=== PATIENT | female | born 1950 | race Caucasian/White ===

== ENCOUNTER 2017-12-03 10:02 | Emergency (ER) | payer MEDICARE, BC ==
[~2017-12-03] VITALS: Ht 154.9 cm; Wt 96.6 kg
[2017-12-03 10:13] VITALS: BP 145/67; PULSE 71; RESP 16; TEMP 97.4; O2SAT 98
[2017-12-03 10:20] VITALS: BP 145/67; PULSE 71; RESP 16; TEMP 97.4; O2SAT 98
[2017-12-03] MEDS ORDERED: LEVO75TA3 PO (10:22)
[2017-12-03] MEDS ORDERED: DILT120C50 PO (10:23)
[2017-12-03] MEDS ORDERED: METO1TAB9 PO (10:23)
[2017-12-03] MEDS ORDERED: METF500T PO (10:23)
[2017-12-03] MEDS ORDERED: LIPI20TA PO (10:24)
[2017-12-03] MEDS ORDERED: LISI2.5T3 PO (10:24)
[2017-12-03] MEDS ORDERED: ORPHENADRINE INJ 60 MG/2 ML AMP IM ONE (10:30)
[2017-12-03] MEDS ORDERED: KETOROLAC TROMETHAMINE 60 MG/2 ML (IM) VIAL IM ONE (10:30)
--- NOTE | 2017-12-03 10:32 | PD ---
HPI Chief Complaint: Musculoskeletal Complaint Time Seen by Provider: 10:21 Travel History International Travel<30 days: No Contact w/Intl Traveler<30days: No Traveled to known affect area: No History of Present Illness HPI This is a 67-year-old female presents for evaluation of lower back pain. Symptoms started 3 days ago. She reports that symptoms started after she was stretching her body. Symptoms initially were mild but then yesterday she was lifting her blinds up and the pain became worse which prompted evaluation. She describes it as a soreness in her right lower back which is worse with certain movements, alleviated with rest. She has been taking some ibuprofen with some relief in her pain. She reports that it feels like a "pulled muscle." She denies abdominal pain, flank pain, nausea or vomiting, dysuria, hematuria. No history of kidney stone or back surgery. Denies lower extremity weakness, radicular symptoms, bowel or bladder incontinence, saddle anesthesia. Denies history of osteoporosis. No other complaints. PFSH Past Medical History Diminished Hearing: No Tetanus Vaccination: < 5 Years Influenza Vaccination: Yes Past Surgical History Cardiac Surgery: Yes (Bipass) Hysterectomy: Yes Tonsillectomy: Yes Other Surgery: Yes (Gallbladder) Social History Alcohol Use: No Tobacco Use: No Substance Use: No Allergies-Medications (Allergen,Severity, Reaction): Coded Allergies: No Known Allergies (Unverified , 12/03/17) Reported Meds & Prescriptions Reported Meds & Active Scripts Active Lidocaine Patch 12 HR (Lidocaine) 5 % Patch 1 Patch TOPICAL DAILY PRN Remove patch after 12 hours Baclofen 10 Mg Tab 10 Mg PO Q8HR 7 Days Reported Lisinopril 2.5 Mg Tab 2.5 Mg PO DAILY Lipitor (Atorvastatin Calcium) 20 Mg Tab 20 Mg PO HS Diltiazem CD 24 HR 120 Mg Caper 180 Mg PO DAILY Metformin (Metformin HCl) 500 Mg Tab 500 Mg PO BIDPC Metoprolol Succinate ER 24 HR (Metoprolol Succinate) 50 Mg Tab 50 Mg PO DAILY Levothyroxine (Levothyroxine Sodium) 75 Mcg Tab 75 Mcg PO DAILY Review of Systems Except as stated in HPI: all other systems reviewed are Neg Physical Exam Narrative GENERAL: Well-developed well-nourished female in no acute distress SKIN: Warm and dry. No rash HEAD: Atraumatic. Normocephalic. EYES: Pupils equal and round. No scleral icterus. No injection or drainage. ENT: No nasal bleeding or discharge. Mucous membranes pink and moist. NECK: Trachea midline. No JVD. CARDIOVASCULAR: Regular rate and rhythm. No murmur appreciated. RESPIRATORY: No accessory muscle use. Clear to auscultation. Breath sounds equal bilaterally. GASTROINTESTINAL: Abdomen soft, non-tender, nondistended. Hepatic and splenic margins not palpable. No palpable pulsatile masses. MUSCULOSKELETAL: No obvious deformities. No tenderness to palpation along the thoracic or lumbar midline spine. No CVA tenderness. 5 out of 5 muscle strength in the lower extremities. NEUROLOGICAL: Awake and alert. No obvious cranial nerve deficits. Motor grossly within normal limits. Normal speech. PSYCHIATRIC: Appropriate mood and affect; insight and judgment normal. Data Data Last Documented VS Vital Signs Date Time Temp Pulse Resp B/P (MAP) Pulse Ox O2 Delivery O2 Flow Rate FiO2 12/03/17 10:20 97.4 71 16 145/67 (93) 98 Orders Orders Spine, Lumbar - Ltd (Ap & Lat) (12/03/17 ) Ketorolac Inj (Toradol Inj) (12/03/17 10:30) Orphenadrine Inj (Norflex Inj) (12/03/17 10:30) Ed Discharge Order (12/03/17 11:09) MDM Medical Decision Making Medical Screen Exam Complete: Yes Emergency Medical Condition: Yes Medical Record Reviewed: Yes Differential Diagnosis Lumbar strain, compression fracture, AAA, renal stone, pyelonephritis, degenerative disc disease, shingles Narrative Course 67-year-old female with 3 days of right-sided lower back pain. History and examination are consistent with musculoskeletal pain. Because of her age, x- ray of the lumbar spine has been ordered. She will be given Toradol and Norflex. X-ray imaging reveals CONCLUSION: Some endplate irregularity involving the superior endplate of L2 questionable for a nondisplaced fracture. It is minimally wedged but less than 10% of its original height has been lost. The patient has no bony tenderness to palpation over the L2. The patient was given a copy of her x-ray report to follow-up with her primary care physician for outpatient CT or MRI imaging symptoms persist. She will be discharged short course of baclofen Lidoderm. Diagnosis Primary Impression: Lumbar strain Additional Instructions: Continue ibuprofen as needed [id number]. Medication as prescribed. Do not drive or drink alcohol when taking baclofen. Follow up with primary care physician as needed and return for any emergent medical conditions. Med/Other Pt SpecificInfo: Prescription(s) given Scripts Lidocaine Patch 12 HR (Lidocaine Patch 12 HR) 5 % Patch 1 PATCH TOPICAL DAILY Y for PAIN, #1 BOX 1 Refill Remove patch after 12 hours Prov: Tanner Posada MD 12/03/17 Baclofen (Baclofen) 10 Mg Tab 10 MG PO Q8HR for 7 Days, TAB 0 Refills Prov: Tanner Posada MD 12/03/17 Disposition: 01 DISCHARGE HOME Condition: Stable Bryson Almodovar Dec 03, 2017 10:32
--- NOTE | 2017-12-03 11:04 | RADRPT ---
EXAM DATE/TIME: 12/03/2017 10:39 [facility] COMPARISON: No previous studies available for comparison. INDICATIONS : Low back pain, no known injury. MEDICAL HISTORY : None. SURGICAL HISTORY : None. ENCOUNTER: Initial ACUITY: 3 days PAIN SCORE: 8/10 LOCATION: low back FINDINGS: Two view examination was performed. On the lateral film there is no significant subluxation. There is some endplate irregularity involving the superior endplate of L2 could be a subtle compression fract ure. There is also minimal endplate cupping of superior endplate of L1 in the interim plate of T11 I suspect more chronic. There is no significant subluxation. No lytic or blastic lesion is seen. CONCLUSION: Some endplate irregularity involving the superior endplate of L2 questionable for a nondisplaced frac ture. It is minimally wedged but less than 10% of its original height has been lost. Ismael Lin MD on December 03, 2017 at 11:00 Board Certified Radiologist. This report was verified electronically.
[2017-12-03] MEDS ORDERED: LIDO1PAD52 TOPICAL (11:09)
[2017-12-03] MEDS ORDERED: BACL10TA PO (11:09)
== END 2017-12-03 11:18 | disposition home or self-care (01) ==
LOC: PHEFT 10:02
DX: S39.012A Strain of muscle, fascia and tendon of lower back, initial encounter (principal); X50.9XXA Other and unspecified overexertion or strenuous movements or postures, initial encounter
CPT/HCPCS: 72100; 96372; 99284; J1885; J2360